=== PATIENT | female | born 1970 | race Caucasian/White ===

== ENCOUNTER 2016-08-08 09:35 | Inpatient (IN) | payer MEDICAID ==
[~2016-08-08] VITALS: Ht 160 cm; Wt 106.4 kg
[2016-08-08 09:51] VITALS: BP 142/67; PULSE 57; RESP 18
[2016-08-08 09:52] VITALS: Ht 160 cm; Wt 106.4 kg
[2016-08-08] MEDS ORDERED: LACTATED RINGER'S 1,000 ML IV SCH (10:28)
[2016-08-08] MEDS ORDERED: DEXTROSE 5%-LR 1,000 ML IV SCH (10:28)
[2016-08-08] MEDS ORDERED: ACETAMINOPHEN/CODEINE #3 TAB PO PRN ×3 (10:30→14:00)
[2016-08-08] MEDS ORDERED: OXYTOCIN 30 UNITS/LR 500 ML IV SCH (10:30)
[2016-08-08] MEDS ORDERED: BUTORPHANOL 2 MG INJ IV PRN (10:30)
[2016-08-08] MEDS ORDERED: CARBOPROST 250 MCG INJ IM PRN (10:30)
[2016-08-08] MEDS ORDERED: METHYLERGONOVINE 0.2 MG INJ IM PRN (10:30)
[2016-08-08] MEDS ORDERED: OXYTOCIN 30 UNITS/LR 500 ML IV PRN (10:30)
[2016-08-08] MEDS ORDERED: MISOPROSTOL 200 MCG TAB PR PRN (10:30)
[2016-08-08] MEDS ORDERED: IBUPROFEN 600 MG TAB PO PRN (10:30)
[2016-08-08] MEDS ORDERED: LIDOCAINE 1% (MPF) 30 ML INJ INJ PRN (10:30)
[2016-08-08 10:55] LABS: ADD SCAN DIFF NO
[2016-08-08] MEDS ORDERED: LACTATED RINGER'S 1,000 ML IV PRN (11:00)
[2016-08-08 11:14] LABS: BASOPHILS % 0.3 % (0.0-2.0); EOSINOPHILS # 0.1 10^3/ul (0.0-0.5); HEMATOCRIT 34.1 % (37.0-47.0); HEMOGLOBIN 11.2 g/dl (12.0-16.0); LYMPHOCYTES # 2.6 10^3/ul (0.8-2.9); LYMPHOCYTES % 33.6 % (15.0-51.0); MEAN CORPUSCULAR HEMOGLOBIN 31.8 pg (29.0-33.0); MEAN CORPUSCULAR HGB CONC 32.8 g/dl (32.0-37.0); MEAN CORPUSCULAR VOLUME 96.9 fl (82.0-101.0); MEAN PLATELET VOLUME 11.2 fl (7.4-10.4); MONOCYTE # 0.5 10^3/ul (0.3-0.9); MONOCYTES % 5.8 % (0.0-11.0); NEUTROPHIL # 4.6 10^3/ul (1.6-7.5); NEUTROPHILS % 58.5 % (39.0-77.0); PLATELET COUNT 155 10^3/UL (140-415); RED BLOOD COUNT 3.52 10^6/ul (4.20-5.40); RED CELL DISTRIBUTION WIDTH 13.5 % (11.5-14.5); WHITE BLOOD COUNT 7.8 10^3/ul (4.8-10.8)
[2016-08-08 11:19] LABS: INR 0.96; PROTIME 12.8 Sec (12.2-14.2)
[2016-08-08 11:20] LABS: PARTIAL THROMBOPLASTIN TIME 24.1 Sec (25.0-35.0)
[2016-08-08] MEDS ORDERED: FENTAnyl 2MCG/ML-ROPIV 0.2% 100 ML ONE (11:33)
[2016-08-08] MEDS: OXYTOCIN 30 UNITS/LR 500 ML IV SCH ×3 (12:25→17:12)
--- NOTE | 2016-08-08 12:33 | LDN ---
Date/Time of Note Date/Time of Note DATE: 08/08/16 TIME: 12:26 Delivery Summary Normal spontaneous vaginal delivery of a baby boy from OA position shoulders delivered with no difficulty rest of the baby's body followed .amniotic fluid meconium stain, placenta spontaneous expulsion inspected it was complete patient sustained no loss estimated blood loss 250 cc patient transferred to recovery room in good condition Problems: Delivery Information Sex Infant Sex: male Apgars 1 Minute: 9 5 Minute: 9 Suctioning Nose & mouth suctioned at joshua: Yes Delee suction performed: No Umbilical Cord Umbilical cord with: 3 Vessels Cord presentations: no nuchal cord Cord Blood was obtained: Yes Mother & Baby Disposition Disposition Mom & Baby to Maternity; Good: Yes JENIFER GALEANO MD August 08, 2016 12:33
--- NOTE | 2016-08-08 12:41 | HP ---
Date/Time of Note Date/Time of Note DATE: 08/08/16 TIME: 12:35 OB - History Hx of Present Free Text/Dictation 46 years old female 4 para 2 EDC of August 10, 2016 admitted at 39 weeks and 5 days in active labor admitting pelvic examination cervix 4 cm dilated 90% vertex at -1 station category 1 heart tracing ,membranes intact contractions every 3-5 minute patient requested labor epidural anesthesiologist informed. Estimated Due Date: August 10, 2016 : 4 Para: 2 Therapeutic : 1 Care: Good Care Ultrasounds: Normal mid trimester US Obstetrical Complications: Gestational Diabetes Medical Complications: None Past Family/Social History * Past Medical, Surgical, Family and Obstetric Histories reviewed from chart. Rubella: immune RPR/VDRL: Negative GBS Status: Negative HBsAG: Negative OB Admission Exam Vital Signs Vital Signs Vital Signs Date Time Temp Pulse Resp B/P Pulse Ox O2 Delivery O2 Flow Rate FiO2 08/08/16 09:51 98.2 57 18 142/67 Room Air Physical Exam HEENT: WNL Heart: Rhythm Normal Lungs: Clear, Equal Abdomen: WNL Extremities: Normal Reflexes: Normal Cervical Dilatation: 4cm Effacement: Other (90%) Station: -1 Membranes: Intact Amniotic Fluid: Thin Meconium Accelerations: Accelerations Present Decelerations: Early Decelerations Contractions on Admission: < 5 Minutes Apart Intensity: Moderate Last 72 hours Lab Results CBC & BMP 08/08/16 10:37 OB Assessment/Plan Reason for admission: other (Expecting normal vaginal delivery) JENIFER GALEANO MD August 08, 2016 12:41
[2016-08-08 14:00] VITALS: BP 136/73; PULSE 52; RESP 17
[2016-08-08] MEDS ORDERED: LANOLIN 7 GM TUBE TOP PRN (14:00)
[2016-08-08] MEDS ORDERED: ACETAMINOPHEN 325 MG TAB PO PRN (14:00)
[2016-08-08] MEDS ORDERED: OXYCODONE/ASPIRIN (4.88/325) TAB PO PRN ×2 (14:00)
[2016-08-08] MEDS ORDERED: BENZOCAINE 20% 56 ML SPRAY TOP PRN (14:00)
[2016-08-08] MEDS ORDERED: ONDANSETRON 4 MG INJ IV PRN (14:00)
[2016-08-08] MEDS ORDERED: WITCH HAZEL/GLYCERIN PAD PR PRN (14:00)
[2016-08-08] MEDS ORDERED: DIBUCAINE 1% 30 GM OINT PR PRN (14:00)
[2016-08-08 16:30] VITALS: BP 132/70; PULSE 56; RESP 16
[2016-08-08] MEDS: IBUPROFEN 600 MG TAB PO SCH (17:10)
[2016-08-08 20:00] VITALS: BP 140/63; PULSE 78; RESP 18
[2016-08-08] MEDS: SENNA/DOCUSATE NA (8.6MG/50MG) TAB PO SCH (21:29)
[2016-08-09 00:10] VITALS: BP 132/72; PULSE 72
[2016-08-09 04:10] VITALS: BP 132/68; PULSE 55; RESP 18
[2016-08-09] MEDS: IBUPROFEN 600 MG TAB PO SCH ×4 (05:46→14:49)
[2016-08-09 08:17] LABS: ADD SCAN DIFF NO
[2016-08-09 08:30] VITALS: BP 140/67; PULSE 58; RESP 18
[2016-08-09 08:30] LABS: BASOPHILS % 0.2 % (0.0-2.0); EOSINOPHILS % 0.3 % (0.0-7.0); HEMATOCRIT 29.3 % (37.0-47.0); HEMOGLOBIN 9.7 g/dl (12.0-16.0); LYMPHOCYTES # 3.2 10^3/ul (0.8-2.9); LYMPHOCYTES % 33.3 % (15.0-51.0); MEAN CORPUSCULAR HEMOGLOBIN 32.3 pg (29.0-33.0); MEAN CORPUSCULAR HGB CONC 33.1 g/dl (32.0-37.0); MEAN CORPUSCULAR VOLUME 97.7 fl (82.0-101.0); MEAN PLATELET VOLUME 11.3 fl (7.4-10.4); MONOCYTE # 0.4 10^3/ul (0.3-0.9); MONOCYTES % 4.4 % (0.0-11.0); NEUTROPHIL # 5.8 10^3/ul (1.6-7.5); NEUTROPHILS % 61.3 % (39.0-77.0); PLATELET COUNT 149 10^3/UL (140-415); RED CELL DISTRIBUTION WIDTH 13.6 % (11.5-14.5); WHITE BLOOD COUNT 9.5 10^3/ul (4.8-10.8)
[2016-08-09] MEDS: SENNA/DOCUSATE NA (8.6MG/50MG) TAB PO SCH ×2 (09:12→21:25)
[2016-08-09 15:50] VITALS: BP 140/60; RESP 18
[2016-08-09] MEDS: OXYTOCIN 30 UNITS/LR 500 ML IV SCH (19:29)
[2016-08-09 19:30] VITALS: BP 120/65; PULSE 70; RESP 19
--- NOTE | 2016-08-10 00:59 | QN ---
Documentation Comment ppd 1 afebrile abd soft lochia normal ext normal Laboratory Tests Test 08/09/16 07:40 White Blood Count 9.510^3/ul Red Blood Count 3.0010^6/ul Hemoglobin 9.7g/dl Hematocrit 29.3% Mean Corpuscular Volume 97.7fl Mean Corpuscular Hemoglobin 32.3pg Mean Corpuscular Hemoglobin Concent 33.1g/dl Red Cell Distribution Width 13.6% Platelet Count 26631^3/UL Mean Platelet Volume 11.3fl Neutrophils % 61.3% Lymphocytes % 33.3% Monocytes % 4.4% Eosinophils % 0.3% Basophils % 0.2% Nucleated Red Blood Cells % 0.0/100WBC Neutrophils # 5.810^3/ul Lymphocytes # 3.210^3/ul Monocytes # 0.410^3/ul Eosinophils # 0.010^3/ul Basophils # 0.010^3/ul Nucleated Red Blood Cells # 0.010^3/ul Current Medications Medications (Trade) Dose Ordered Sig/Max Route PRN Reason Start Time Stop Time Status Last Admin Dose Admin Lactated Ringer's 1,000 ml @ 125 mls/hr Q8H IV 08/08/16 10:28 08/08/16 14:02 DC 08/08/16 10:42 Dextrose/Lactated Ringer's (D5-Lr) 1,000 ml @ 125 mls/hr Q8H IV 08/08/16 10:28 08/08/16 14:02 DC Butorphanol Tartrate (Stadol) 2 mg Q2H PRN IV PAIN 08/08/16 10:30 08/08/16 14:02 DC Lidocaine 30 ml 30 ml ONCE PRN INJ EPISIOTOMY/TEARING 08/08/16 10:30 08/08/16 14:02 DC Oxytocin/Lactated Ringer's 500 ml @ 125 mls/hr ONCE -MAY REPEAT X1 IV 08/08/16 10:30 08/08/16 14:02 DC 08/08/16 13:13 Oxytocin/Lactated Ringer's 500 ml @ 125 mls/hr ONCE IV 08/08/16 10:30 08/08/16 14:02 DC Ibuprofen (Motrin) 600 mg ONCE PRN PO Mild Pain (Pain Score 1-3) 08/08/16 10:30 08/08/16 14:02 DC Acetaminophen/ Codeine Phosphate 2 tab 2 tab ONCE PRN PO Moderate to Severe Pain (4-10) 08/08/16 10:30 08/08/16 14:02 DC Lactated Ringer's 1,000 ml @ 2,000 mls/hr Q30M PRN IV PRE-EPIDURAL BOLUS 08/08/16 11:00 08/08/16 14:02 DC Oxytocin/Lactated Ringer's 500 ml @ 0 mls/hr ONCE PRN IV For Hemorrhage Management 08/08/16 10:30 08/08/16 14:03 DC Methylergonovine Maleate (Methergine) 0.2 mg ONCE PRN IM VAGINAL BLEEDING 08/08/16 10:30 08/08/16 14:03 DC Carboprost Tromethamine (Hemabate) 250 mcg ONCE PRN IM VAGINAL BLEEDING 08/08/16 10:30 08/08/16 14:03 DC Misoprostol 1000 mcg 1,000 mcg ONCE PRN SC VAGINAL BLEEDING 08/08/16 10:30 08/08/16 14:03 DC Fentanyl/ Ropivacaine 100 ml @ ud STK-MED ONCE .ROUTE 08/08/16 11:33 08/08/16 11:34 DC Oxytocin/Lactated Ringer's 500 ml @ 125 mls/hr Q4H IV 08/08/16 14:00 08/08/16 21:59 DC 08/08/16 17:12 Ibuprofen (Motrin) 600 mg Q6 PO 08/08/16 18:00 08/09/16 14:49 Acetaminophen (Tylenol Tab) 650 mg Q4H PRN PO PAIN LEVEL 1-5 08/08/16 14:00 Acetaminophen/ Codeine Phosphate (Tylenol No.3) 1 tab Q4H PRN PO PAIN LEVEL 1-5 08/08/16 14:00 Acetaminophen/ Codeine Phosphate (Tylenol No.3) 2 tab Q4H PRN PO PAIN LEVEL 6-10 08/08/16 14:00 Oxycodone/Aspirin (Percodan) 1 tab Q3H PRN PO PAIN LEVEL 1-5 08/08/16 14:00 Oxycodone/Aspirin (Percodan) 2 tab Q3H PRN PO PAIN LEVEL 6-10 08/08/16 14:00 Ondansetron HCl (Zofran Inj) 4 mg Q6H PRN IV NAUSEA AND/OR VOMITING 08/08/16 14:00 Senna/Docusate Sodium (Senokot-S) 1 tab BID PO 08/08/16 21:00 08/09/16 21:25 Witch Aury/ Glycerin (Tucks Pads) 1 pad BEDSIDE MEDICATION PRN SC HEMORRHOID/EPISIOTMY PAIN 08/08/16 14:00 08/08/16 17:10 Benzocaine (Dermoplast [place]) 1 spray BEDSIDE MEDICATION PRN TOP HEMORRHOID/EPISIOTMY PAIN 08/08/16 14:00 08/08/16 17:10 Dibucaine (Nupercainal) 1 applic BEDSIDE MEDICATION PRN SC HEMORRHOID/EPISIOTMY PAIN 08/08/16 14:00 Lanolin (Wlm-O-Moxyti) 1 applic BEDSIDE MEDICATION PRN TOP BEDSIDE FOR JOHNY TO NIPPLES 08/08/16 14:00 08/08/16 17:10 Measles/Mumps/ Rubella Vaccine Live (Mmr Ii Vaccine) 0.5 ml ONCE ONCE SC* 08/10/16 09:00 08/10/16 09:01 JENIFER GALEANO MD August 10, 2016 00:58
[2016-08-10 03:40] VITALS: BP 118/62; PULSE 69; RESP 19
[2016-08-10] MEDS: IBUPROFEN 600 MG TAB PO SCH ×3 (05:29→11:51)
[2016-08-10 08:00] VITALS: BP 121/58; PULSE 64; RESP 16
[2016-08-10] MEDS ORDERED: MEASLES,MUMPS,RUBELLA VACCINE INJ SC* ONE (09:00)
[2016-08-10] MEDS: SENNA/DOCUSATE NA (8.6MG/50MG) TAB PO SCH (09:05)
--- NOTE | 2016-08-10 14:01 | PN ---
Date/Time of Note Date/Time of Note DATE: 08/10/16 TIME: 13:59 OB Subjective Subjective Subjective Patient without complaints. OB Objective Objective Objective Gen: NAD Abd: FF OB Assessment/Plan Reason for admission: active labor Other Assessment: s/p Other plan: PPD2 -discharge home -pelvic rest -f/u in OB clinic DENEEN JOHNSON August 10, 2016 14:01
== END 2016-08-10 15:32 | disposition home or self-care (01) | DRG 775 ==
LOC: L-D 09:35 → OBT 09:35 → L-D 10:30 → PP1 13:54
PROVIDERS: ADMIT Obstetrics & Gynecology; ATTEND Obstetrics & Gynecology
PROC: 10E0XZZ Delivery of Products of Conception, External Approach (ICD-10-PCS; principal; 2016-08-08)
DX: O77.0 Labor and delivery complicated by meconium in amniotic fluid (principal); Z37.0 Single live birth; Z3A.39 39 weeks gestation of pregnancy
CPT/HCPCS: 62319; 82947; 85025; 85610; 85730; 86592; 86900; 86901; 87340; 99464; G0463; J2590; J3010; J7120; J7121